=== PATIENT | female | born 1980 | race African-American/Black ===

== ENCOUNTER 2017-01-05 05:08 | Emergency (ER) | payer BC ==
[~2017-01-05 05:08] MED LIST: NO MEDICATIONS; ROBAXIN500 MG PO; VOLTAREN50 MG PO
== END 2017-01-05 05:30 | disposition home or self-care (01) ==
LOC: SED 05:08
DX: M70.811 Other soft tissue disorders related to use, overuse and pressure, right shoulder (principal); M77.11 Lateral epicondylitis, right elbow; Y93.89 Activity, other specified
CPT/HCPCS: 99282

== ENCOUNTER 2017-02-13 05:54 | Emergency (ER) | payer BC | END 2017-02-13 06:35 | disposition home or self-care (01) | LOC: SED 05:54 | DX: S86.911A Strain of unspecified muscle(s) and tendon(s) at lower leg level, right leg, initial encounter (principal); X58.XXXA Exposure to other specified factors, initial encounter | CPT/HCPCS: 29530; 99283 ==